=== PATIENT | female | born 1995 | race Asian ===

== ENCOUNTER 2017-07-13 19:16 | Emergency (ER) | payer OTHER ==
[~2017-07-13] VITALS: Ht 149.9 cm; Wt 61.8 kg
[2017-07-13 21:26] LABS: AMPHET/METH SCREEN,URINE NEGATIVE (NEGATIVE); BARBITURATE SCREEN, URINE NEGATIVE (NEGATIVE); BENZODIAZEPINES SCREEN,URINE NEGATIVE (NEGATIVE); CANNABINOID SCREEN,URINE NEGATIVE (NEGATIVE); COCAINE SCREEN,URINE NEGATIVE (NEGATIVE); METHADONE SCREEN, URINE NEGATIVE (NEGATIVE); OPIATE SCREEN,URINE NEGATIVE (NEGATIVE); PHENCYCLIDINE SCREEN,URINE NEGATIVE (NEGATIVE)
[2017-07-13 23:29] VITALS: BP 133/78
== END 2017-07-14 00:16 | disposition home or self-care (01) ==
LOC: EMS 19:18
DX: F32.9 Major depressive disorder, single episode, unspecified (principal)
CPT/HCPCS: 99285